=== PATIENT | male | born 1940 | race Caucasian/White ===

== ENCOUNTER 2017-01-09 03:46 | Emergency (ER) | payer OTHER ==
[~2017-01-09] VITALS: Ht 162.6 cm; Wt 75.7 kg
[~2017-01-09 03:46] MED LIST: FLEXERIL10 MG PO; TYLENOL WITH C1 EACH PO
[2017-01-09 04:29] LABS: HEMATOCRIT 47.2 % (38.0-50.0); MCH 30.4 PG (29.0-34.0); MCHC 34.3 G/DL (30.0-36.0); MCV 88.6 FL (86-99); MEAN PLAT.VOLUME 9.8 uM^3 (9.0-12.4); PLATELET COUNT 263 K/uL (156-360); RBC DIS.WIDTH-CV 12.1 % (11.8-14.6); RBC DIS.WIDTH-SD 39.4 % (39-53); RED BLOOD COUNT 5.33 M/uL (4.00-5.50); WHITE BLOOD COUNT 5.9 K/uL (4.1-10.2)
[2017-01-09 04:41] LABS: CHLORIDE 104 mEq/L (99-109); SODIUM 142 mEq/L (136-147)
[2017-01-09 04:43] LABS: GLUCOSE 103 mg/dL (70-99)
[2017-01-09 04:44] LABS: ANION GAP 9 MEQ/L (2-14)
[2017-01-09 04:45] LABS: TOTAL BILIRUBIN 0.6 mg/dL (0.0-1.0)
[2017-01-09 04:46] LABS: ALKALINE PHOSPHATASE 40 IU/L (3-129)
[2017-01-09 04:47] LABS: GFR ESTIMATE (CALCULATED) 57 mL/min/
[2017-01-09 04:48] LABS: UREA NITROGEN (BUN) 16 mg/dL (9-23)
[2017-01-09 05:09] LABS: ADD MIUA? YES; BILIRUBIN NEGATIVE; BLOOD NEGATIVE; COLOR STRAW ((YELLOW)); GLUCOSE (STRIP) NEGATIVE; KETONES NEGATIVE; LEUKOCYTES TRACE; NITRITE NEGATIVE; PROTEIN (STRIP) NEGATIVE; SPECIFIC GRAVITY 1.008 (1.000-1.030); UROBILINOGEN 0.2 MG/DL (0.2-1.0)
[2017-01-09 05:14] LABS: BACTERIA NONE SEEN /HPF; EPITHELIAL CELLS NONE SEEN /HPF; MUCUS TRACE /LPF; RED BLOOD CELLS 0-5 /HPF (0-5); UCUL ADDED? NO; WHITE BLOOD CELLS 0-5 /HPF (0-5)
[2017-01-09 10:11] VITALS: BP 141/83
[2017-01-09] MEDS ORDERED: PERCOCET 5/31 TABLET PO (10:23)
[2017-01-10] MEDS ORDERED: PRAVASTATIN SOD40 MG PO (22:43)
[2017-01-10] MEDS ORDERED: ESOMEPRAZOLE MA40 MG PO (22:44)
[2017-01-10] MEDS ORDERED: INDERAL60 MG PO (22:44)
[2017-01-10] MEDS ORDERED: LO-DOSE ASPIRIN81 M2 PO (22:45)
[2017-01-10] MEDS ORDERED: FLONASE16 G1 BOTH NARES (22:46)
== END 2017-01-09 10:46 | disposition home or self-care (01) ==
LOC: EME 03:46
PROVIDERS: Physician Assistant
DX: R10.9 Unspecified abdominal pain (principal); I10 Essential (primary) hypertension
CPT/HCPCS: 74174; 74176; 80053; 81003; 85027; 93005; 99281; 99284; J1885; J2270; J2405; J7030

== ENCOUNTER 2017-01-10 18:02 | Inpatient (IN) | payer OTHER ==
[~2017-01-10] VITALS: Ht 162.6 cm; Wt 75.5 kg
[~2017-01-10 18:02] MED LIST changes: +PERCOCET 5/31 TABLET PO
[2017-01-10 19:17] LABS: HEMATOCRIT 48.3 % (38.0-50.0); MCH 30.1 PG (29.0-34.0); MCHC 33.5 G/DL (30.0-36.0); MCV 89.6 FL (86-99); PLATELET COUNT 269 K/uL (156-360); RBC DIS.WIDTH-SD 39.7 % (39-53); RED BLOOD COUNT 5.39 M/uL (4.00-5.50); WHITE BLOOD COUNT 9.6 K/uL (4.1-10.2)
[2017-01-10 19:25] LABS: CHLORIDE 103 mEq/L (99-109); POTASSIUM 4.2 mEq/L (3.7-5.4)
[2017-01-10 19:26] LABS: SODIUM 140 mEq/L (136-147)
[2017-01-10 19:28] LABS: GLUCOSE 134 mg/dL (70-99)
[2017-01-10 19:29] LABS: ANION GAP 10 MEQ/L (2-14)
[2017-01-10 19:30] LABS: TOTAL BILIRUBIN 0.6 mg/dL (0.0-1.0)
[2017-01-10 19:31] LABS: ALKALINE PHOSPHATASE 41 IU/L (3-129); GFR ESTIMATE (CALCULATED) 52 mL/min/
[2017-01-10 19:32] LABS: UREA NITROGEN (BUN) 14 mg/dL (9-23)
[2017-01-10 19:35] LABS: LIPASE 25 U/L (1.0-51.0)
[2017-01-10] MEDS ORDERED: PRAVASTATIN SOD40 MG PO (22:43)
[2017-01-10] MEDS ORDERED: INDERAL60 MG PO (22:44)
[2017-01-10] MEDS ORDERED: ESOMEPRAZOLE MA40 MG PO (22:44)
[2017-01-10] MEDS ORDERED: LO-DOSE ASPIRIN81 M2 PO (22:45)
[2017-01-10] MEDS ORDERED: FLONASE16 G1 BOTH NARES (22:46)
[2017-01-10 22:47] LABS: ADD MIUA? NO; BILIRUBIN NEGATIVE; BLOOD NEGATIVE; COLOR STRAW ((YELLOW)); GLUCOSE (STRIP) NEGATIVE; KETONES NEGATIVE; LEUKOCYTES NEGATIVE; NITRITE NEGATIVE; PROTEIN (STRIP) NEGATIVE; UCUL ADDED? NO; UROBILINOGEN 0.2 MG/DL (0.2-1.0)
[2017-01-11 00:38] VITALS: BP 160/79
[2017-01-11 06:45] LABS: MCH 30.4 PG (29.0-34.0); MCHC 33.5 G/DL (30.0-36.0); MCV 90.7 FL (86-99); MEAN PLAT.VOLUME 10.5 uM^3 (9.0-12.4); PLATELET COUNT 237 K/uL (156-360); RBC DIS.WIDTH-CV 12.3 % (11.8-14.6); RBC DIS.WIDTH-SD 40.7 % (39-53); RED BLOOD COUNT 4.74 M/uL (4.00-5.50); WHITE BLOOD COUNT 7.2 K/uL (4.1-10.2)
[2017-01-11 06:57] LABS: ANION GAP 7 MEQ/L (2-14); CHLORIDE 102 MEQ/L (99-109); GFR ESTIMATE (CALCULATED) 52 mL/min/; SAMPLE HEMOLYSIS CHECK 0; SAMPLE ICTERIC CHECK 0; SAMPLE LIPEMIA CHECK 0; SODIUM 139 MEQ/L (136-147); UREA NITROGEN (BUN) 16 mg/dL (9-23)
[2017-01-11 06:58] LABS: GLUCOSE 89 mg/dL (70-99)
[2017-01-11 16:22] VITALS: BP 130/68
[2017-01-11 20:42] VITALS: BP 135/73
[2017-01-12 00:07] VITALS: BP 101/61
[2017-01-12 03:50] VITALS: BP 123/58; BP 125/73
[2017-01-12 06:19] LABS: EOSINOPHIL COUNT 0.3 K/uL (0-0.3); IMMATURE GRANULOCYTE (%) 0.2 % (0.0-0.7); INSTRUMENT ABS NEUTROPHIL CT 3.3 K/uL; LYMPHOCYTE COUNT 1.7 K/uL (1.0-2.8); MCH 31.6 PG (29.0-34.0); MCHC 34.5 G/DL (30.0-36.0); MCV 91.5 FL (86-99); MONOCYTE (%) 12.3 % (3-12); MONOCYTE COUNT 0.8 K/uL (0-0.8); NEUTROPHIL COUNT 3.3 K/uL (1.8-6.4); PLATELET COUNT 216 K/uL (156-360); RBC DIS.WIDTH-CV 12.3 % (11.8-14.6); RED BLOOD COUNT 4.59 M/uL (4.00-5.50); WHITE BLOOD COUNT 6.2 K/uL (4.1-10.2)
[2017-01-12 07:28] VITALS: BP 143/88
[2017-01-12 07:52] LABS: ANION GAP 4 MEQ/L (2-14); CHLORIDE 105 MEQ/L (99-109); GFR ESTIMATE (CALCULATED) 57 mL/min/; GLUCOSE 104 mg/dL (70-99); POTASSIUM 4.2 MEQ/L (3.7-5.4); SAMPLE HEMOLYSIS CHECK 0; SAMPLE ICTERIC CHECK 0; SAMPLE LIPEMIA CHECK 0; SODIUM 139 MEQ/L (136-147); UREA NITROGEN (BUN) 18 mg/dL (9-23)
[2017-01-12 17:27] VITALS: BP 140/78
[2017-01-13 00:09] VITALS: BP 137/75
[2017-01-13 07:53] VITALS: BP 145/79
[2017-01-13 13:12] LABS: PROTHROMBIN TIME 11.2 SEC (10.2-12.9)
[2017-01-13 13:15] LABS: PTT 30.9 SEC (25-37)
[2017-01-13 13:44] VITALS: BP 154/79
[2017-01-13 16:26] VITALS: BP 139/60
[2017-01-13 21:17] VITALS: BP 130/69
[2017-01-13 22:48] VITALS: BP 119/67
[2017-01-14 06:33] LABS: HEMATOCRIT 45.5 % (38.0-50.0); MCH 29.6 PG (29.0-34.0); MCHC 33.2 G/DL (30.0-36.0); MCV 89.2 FL (86-99); MEAN PLAT.VOLUME 10.2 uM^3 (9.0-12.4); PLATELET COUNT 247 K/uL (156-360); RBC DIS.WIDTH-CV 11.9 % (11.8-14.6); RBC DIS.WIDTH-SD 39.5 % (39-53); WHITE BLOOD COUNT 5.9 K/uL (4.1-10.2)
[2017-01-14 06:59] LABS: ANION GAP 6 MEQ/L (2-14); CHLORIDE 103 MEQ/L (99-109); GFR ESTIMATE (CALCULATED) 57 mL/min/; GLUCOSE 95 mg/dL (70-99); MAGNESIUM 1.9 mg/dl (1.3-2.7); POTASSIUM 4.3 MEQ/L (3.7-5.4); SAMPLE HEMOLYSIS CHECK 0; SAMPLE ICTERIC CHECK 0; SAMPLE LIPEMIA CHECK 0; SODIUM 140 MEQ/L (136-147); UREA NITROGEN (BUN) 20 mg/dL (9-23)
[2017-01-14 07:57] VITALS: BP 123/69; BP 132/63
[2017-01-14] MEDS ORDERED: ACETAMINOPHEN-1 EAC1 PO (13:29)
[2017-01-14] MEDS ORDERED: TYLENOL REGULA325 MG PO (13:29)
== END 2017-01-14 14:29 | disposition home or self-care (01) | DRG 700 ==
LOC: EME 18:02 → 5EAST 23:00 → EDOF 23:00 → ENRESERV 23:03 → CANRESERV 23:21 → 5EAST 23:59 → ENPENDDIS 01-14 → 5EAST 01-14 14:29
PROVIDERS: Emergency Medicine; Hospitalist; Internal Medicine; Physician Assistant; Radiology Diagnostic Radiology
PROC: 0T903ZX Drainage of Right Kidney, Percutaneous Approach, Diagnostic (ICD-10-PCS; principal; 2017-01-13)
DX: N28.1 Cyst of kidney, acquired (principal); D18.03 Hemangioma of intra-abdominal structures; E78.5 Hyperlipidemia, unspecified; I10 Essential (primary) hypertension; N40.0 Benign prostatic hyperplasia without lower urinary tract symptoms; Z79.82 Long term (current) use of aspirin
CPT/HCPCS: 74183; 75989; 80048; 80053; 81003; 83605; 83690; 83735; 85025; 85027; 85610; 85730; 87070; 87075; 87205; 99281; 99285; J0744; J1644; J2060; J2270; J2405

== ENCOUNTER 2017-05-16 21:07 | Inpatient (IN) | payer OTHER ==
[~2017-05-16] VITALS: Ht 162.6 cm; Wt 68.0 kg
[~2017-05-16 21:07] MED LIST changes: +ACETAMINOPHEN-1 EAC1 PO; +ESOMEPRAZOLE MA40 MG PO; +FLONASE16 G1 BOTH NARES; +INDERAL60 MG PO; +LO-DOSE ASPIRIN81 M2 PO; +PRAVASTATIN SOD40 MG PO; +TYLENOL REGULA325 MG PO
[2017-05-17 06:51] VITALS: BP 162/86
[2017-05-17 16:35] VITALS: BP 137/78
[2017-05-17 19:37] VITALS: BP 104/59
[2017-05-18 00:19] VITALS: BP 107/60
[2017-05-18 03:29] VITALS: BP 112/58
[2017-05-18 06:30] LABS: HEMATOCRIT 40.7 % (38.0-50.0); MCH 30.2 PG (29.0-34.0); MCHC 33.4 G/DL (30.0-36.0); MCV 90.4 FL (86-99); PLATELET COUNT 244 K/uL (156-360); RBC DIS.WIDTH-CV 12.2 % (11.8-14.6); RBC DIS.WIDTH-SD 40.5 % (39-53); WHITE BLOOD COUNT 12.4 K/uL (4.1-10.2)
[2017-05-18 06:31] LABS: HEMOGLOBIN 13.6 G/DL (12.5-16.6)
[2017-05-18 06:55] LABS: CHLORIDE 103 MEQ/L (99-109); CREATININE 1.2 MG/DL (0.6-1.3); GFR ESTIMATE (CALCULATED) > 59 mL/min/ (58.99-99999); GLUCOSE 113 mg/dL (70-99); POTASSIUM 4.4 MEQ/L (3.7-5.4); SODIUM 138 MEQ/L (136-147); UREA NITROGEN (BUN) 20 mg/dL (9-23)
[2017-05-18 07:31] VITALS: BP 109/67
[2017-05-18 11:31] VITALS: BP 127/70
[2017-05-18 16:38] VITALS: BP 127/77
[2017-05-18 22:30] VITALS: BP 130/79
[2017-05-19 08:31] VITALS: BP 160/82
[2017-05-19 15:31] VITALS: BP 137/67
[2017-05-19 19:26] VITALS: BP 138/71
[2017-05-19 23:53] VITALS: BP 135/60
[2017-05-20 03:54] VITALS: BP 142/79
[2017-05-20 06:33] LABS: HEMATOCRIT 40.8 % (38.0-50.0); HEMOGLOBIN 13.6 G/DL (12.5-16.6); MCH 30.6 PG (29.0-34.0); MCHC 33.3 G/DL (30.0-36.0); MCV 91.7 FL (86-99); PLATELET COUNT 213 K/uL (156-360); RBC DIS.WIDTH-CV 12.1 % (11.8-14.6); RBC DIS.WIDTH-SD 41.1 % (39-53); RED BLOOD COUNT 4.45 M/uL (4.00-5.50)
[2017-05-20 06:56] LABS: CHLORIDE 102 MEQ/L (99-109); CREATININE 1.2 MG/DL (0.6-1.3); GFR ESTIMATE (CALCULATED) > 59 mL/min/ (58.99-99999); GLUCOSE 96 mg/dL (70-99); POTASSIUM 4.3 MEQ/L (3.7-5.4); SODIUM 140 MEQ/L (136-147); UREA NITROGEN (BUN) 13 mg/dL (9-23)
[2017-05-20 07:31] VITALS: BP 174/94
[2017-05-20 11:53] VITALS: BP 153/72
[2017-05-20 16:02] VITALS: BP 118/69
[2017-05-20 23:52] VITALS: BP 141/45
[2017-05-21 07:11] VITALS: BP 119/83
[2017-05-21] MEDS ORDERED: ACETAMINOPHEN-1 EAC3 PO (08:23)
== END 2017-05-21 11:36 | disposition home or self-care (01) | DRG 661 ==
LOC: ENRESERV 21:07 → 2SOUTH 05-17 06:27 → ENRESERV 05-17 14:40 → 5EAST 05-17 16:06 → ENPENDDIS 05-21 → 5EAST 05-21 11:36
PROVIDERS: Nurse Practitioner Adult Health; Urology
PROC: 0TB04ZZ Excision of Right Kidney, Percutaneous Endoscopic Approach (ICD-10-PCS; principal; 2017-05-17)
DX: N28.1 Cyst of kidney, acquired (principal); E78.00 Pure hypercholesterolemia, unspecified; I10 Essential (primary) hypertension; K21.9 Gastro-esophageal reflux disease without esophagitis; R25.1 Tremor, unspecified; M19.90 Unspecified osteoarthritis, unspecified site; N40.0 Benign prostatic hyperplasia without lower urinary tract symptoms; Z80.3 Family history of malignant neoplasm of breast; Z82.49 Family history of ischemic heart disease and other diseases of the circulatory system; Z87.891 Personal history of nicotine dependence
CPT/HCPCS: 71046; 80048; 85027; 88305; 94799; J0131; J0330; J0690; J1100; J1170; J1885; J2310; J2405; J2710; J2765; J3010; J7120